=== PATIENT | male | born 1970 | race Two or more races ===

== ENCOUNTER 2017-03-25 17:05 | Emergency (ER) | payer BC ==
[~2017-03-25] VITALS: Ht 188 cm; Wt 95.3 kg
[2017-03-25 18:05] LABS: Basophils # (auto) 0.1 uL; Eosinophils # (auto) 0.1 uL; Eosinophils % (auto) 2.1 % (0.0-7.0); Hematocrit 47.8 % (41.0-53.0); Hemoglobin 16.2 g/dL (13.5-17.5); Lymphocytes # (auto) 1.9 uL; Lymphocytes % (auto) 35.6 % (10.0-50.0); Mean Corpuscular Hemoglobin 27.1 pg (28.0-32.0); Mean Corpuscular Hgb Conc. 33.9 g/dL (32.0-36.0); Mean Platelet Volume 7.3 fL (7.4-10.4); Monocytes # (auto) 0.5 uL; Monocytes % (auto) 9.1 % (0.0-12.0); Neutrophils # (auto) 2.8 uL; Neutrophils % (auto) 52.2 % (37.0-80.0); Nucleated Red Blood Cells % 0.1 %; Platelet Count (auto) 276 10^3/uL (140-450); Red Cell Distribution Width 13.5 % (11.6-16.0); White Blood Cell 5.4 10^3/uL (4.4-10.8)
[2017-03-25 18:33] LABS: Albumin 3.8 g/dL (3.4-5.0); Alkaline Phosphatase 88 U/L (45-117); Anion Gap 5 (5-15); Aspartate Aminotransferase 14 U/L (15-37); BUN/Creatinine Ratio 9.6; Bilirubin, Total 0.5 mg/dL (0.2-1.0); Blood Urea Nitrogen 10 mg/dL (7-18); Calcium 8.7 mg/dL (8.5-10.1); Carbon Dioxide 29 mmol/L (21-32); Chloride 103 mmol/L (98-107); GFR African American 100 mL/min; GFR Non-African American 82 mL/min; Glucose 120 mg/dL (74-106); Magnesium 2.5 mg/dL (1.6-2.6); Potassium 3.6 mmol/L (3.5-5.1); Sodium 137 mmol/L (136-145); Total Protein 7.3 g/dL (6.4-8.2)
[2017-03-25] MEDS ORDERED: ASPirin 81 mg TAB PO ONE (19:30)
[2017-03-25 20:54] LABS: INR 0.96 (0.9-1.15); Partial Thromboplastin Time 27.8 sec (22.64-33.71); Prothrombin Time 10.5 sec (9.37-12.3)
[2017-03-25] MEDS ORDERED: LORazepam 0.5 MG TAB PO ONE (23:30)
[2017-03-26 01:32] VITALS: BP 144/100
== END 2017-03-26 01:48 | disposition home or self-care (01) ==
LOC: ER 17:07
DX: R07.89 Other chest pain (principal); F19.10 Other psychoactive substance abuse, uncomplicated; F41.9 Anxiety disorder, unspecified; I10 Essential (primary) hypertension; Z91.14 Patient's other noncompliance with medication regimen; Z79.82 Long term (current) use of aspirin
CPT/HCPCS: 36415; 71020; 80053; 80307; 83735; 84443; 84484; 85025; 85379; 85610; 85730; 93005